=== PATIENT | male | born 1990 | race African-American/Black ===

== ENCOUNTER → 2021-04-09 | Emergency (ER) | payer SELFPAY ==
[~2021-04-09] MED LIST: CALCIUM CHLORIDE 1 GM/10 ML *DISP.SYRIN ONE; EPINEPHrine 1:10,000 (P-F SYR) 1 MG/10 ML DISP.SYRIN ONE; SODIUM BICARBONATE 8.4% - 50 ML ONE
[2021-04-09 04:38] VITALS: BP 43/20; PULSE 0; BMI 38.0
== END | disposition expired ==
LOC: JER 04:32
DX: R56.9 Unspecified convulsions (principal); T17.908A Unspecified foreign body in respiratory tract, part unspecified causing other injury, initial encounter; R09.2 Respiratory arrest
CPT/HCPCS: 82962; 99283-25